=== PATIENT | female | born 1950 | race Caucasian/White ===

== ENCOUNTER → 2017-03-06 | Outpatient (CLI) | payer OTHER | END | disposition home or self-care (01) | LOC: CFH 07:07 | PROVIDERS: ATTEND Family Medicine | DX: Z13.1 Encounter for screening for diabetes mellitus (principal); E78.00 Pure hypercholesterolemia, unspecified | CPT/HCPCS: 36415; 80061; 82947; 83036 ==

== ENCOUNTER → 2017-03-20 | Outpatient (CLI) | payer OTHER | END | disposition home or self-care (01) | LOC: CFH 11:49 | PROVIDERS: ATTEND Family Medicine | DX: M17.11 Unilateral primary osteoarthritis, right knee (principal) | CPT/HCPCS: 73565 ==

== ENCOUNTER → 2017-11-12 | Outpatient (CLI) | payer OTHER | END | disposition home or self-care (01) | LOC: CFH 15:56 | PROVIDERS: ATTEND Nurse Practitioner Family | DX: Z12.31 Encounter for screening mammogram for malignant neoplasm of breast (principal) | CPT/HCPCS: G0202 ==

== ENCOUNTER → 2018-11-13 | Outpatient (CLI) | payer OTHER | END | disposition home or self-care (01) | LOC: CFH 15:27 | PROVIDERS: ATTEND Nurse Practitioner Family | DX: Z12.31 Encounter for screening mammogram for malignant neoplasm of breast (principal) | CPT/HCPCS: 77067 ==

== ENCOUNTER → 2018-12-17 | Outpatient (CLI) | payer OTHER ==
[2018-12-17 07:31] LABS: ALANINE AMINOTRANSFERASE 31 U/L (12-78); ANION GAP 7 mmol/L (5-15); BASOPHILS # (AUTO) 0.04 x10^3/uL (0-0.1); BASOPHILS % (AUTO) 1 % (0-1); CALCIUM 9.6 mg/dL (8.5-10.1); CHLORIDE 109 mmol/L (98-107); CREATININE 0.85 mg/dL (0.55-1.02); EOSINOPHILS # (AUTO) 0.09 x10^3/uL (0-0.4); EOSINOPHILS % (AUTO) 2 % (1-7); LYMPHOCYTES # (AUTO) 1.01 x10^3/uL (1-3.4); LYMPHOCYTES % (AUTO) 28 % (22-44); MD NO; MEAN CORPUSCULAR HEMOGLOBIN 31.1 pg (27.0-34.8); MEAN CORPUSCULAR HGB CONC 33.8 g/dL (32.4-35.8); MEAN CORPUSCULAR VOLUME 92.2 fL (80-100); MEAN PLATELET VOLUME 8.4 fL (7.4-10.4); MONOCYTES # (AUTO) 0.28 x10^3/uL (0.2-0.8); MONOCYTES % (AUTO) 8 % (2-9); NEUTROPHILS # (AUTO) 2.15 x10^3/uL (1.8-6.8); NEUTROPHILS % (AUTO) 60 % (42-75); PLATELET COUNT 289 x10^3/uL (130-400); RED BLOOD COUNT 4.76 x10^6/uL (3.82-5.3)
[2018-12-17 07:41] LABS: ALKALINE PHOSPHATASE 46 U/L (45-117); BILIRUBIN,TOTAL 0.6 mg/dL (0.2-1.0); CHOL/HDL RATIO 3.2; CHOLESTEROL, TOTAL 186 mg/dL (140-239); HDL CHOL % 32 % (28-40); HDL CHOLESTEROL (DIRECT) 59 mg/dL (40-60); LDL CHOLESTEROL,CALCULATED 109 mg/dL (54-169); LDL/HDL RATIO 1.8 (0.5-3.0); TOTAL PROTEIN 7.9 g/dL (6.4-8.2); TRIGLYCERIDES 91 mg/dL (50-200); VLDL CHOLESTEROL 18 mg/dL (0-25)
== END | disposition home or self-care (01) ==
LOC: LAB 07:04
PROVIDERS: ATTEND Nurse Practitioner Family
DX: Z00.00 Encounter for general adult medical examination without abnormal findings (principal); Z13.820 Encounter for screening for osteoporosis; I10 Essential (primary) hypertension; E55.9 Vitamin D deficiency, unspecified; E78.2 Mixed hyperlipidemia; I34.0 Nonrheumatic mitral (valve) insufficiency; M85.80 Other specified disorders of bone density and structure, unspecified site
CPT/HCPCS: 36415; 80053; 80061; 82306; 84443; 85025

== ENCOUNTER → 2018-12-24 | Outpatient (CLI) | payer OTHER | END | disposition home or self-care (01) | LOC: CFH 10:46 | PROVIDERS: ATTEND Nurse Practitioner Family | DX: Z13.820 Encounter for screening for osteoporosis (principal); M85.88 Other specified disorders of bone density and structure, other site | CPT/HCPCS: 77080 ==

== ENCOUNTER 2019-11-15 09:10 | Outpatient (CLI) | payer OTHER | END 2019-11-15 23:59 | disposition home or self-care (01) | LOC: CFH 09:10 | PROVIDERS: ATTEND Family Medicine | DX: Z12.31 Encounter for screening mammogram for malignant neoplasm of breast (principal) | CPT/HCPCS: 77067 ==

== ENCOUNTER → 2019-12-16 | Outpatient (CLI) | payer OTHER | END | disposition home or self-care (01) | LOC: CFH 10:35 → EDSTATUS 10:45 | PROVIDERS: ATTEND Family Medicine | DX: C25.0 Malignant neoplasm of head of pancreas (principal); K86.2 Cyst of pancreas; K74.69 Other cirrhosis of liver | CPT/HCPCS: 76705 ==

== ENCOUNTER 2019-12-17 08:45 | Outpatient (CLI) | payer OTHER ==
[2019-12-17 11:04] LABS: CREATININE 0.82 mg/dL (0.55-1.02)
[2019-12-17] MEDS ORDERED: OMNIPAQUE 350 MG/ML, 100ML BOTTLE ONE (12:04)
== END 2019-12-17 23:59 | disposition home or self-care (01) ==
LOC: RAD 08:45
PROVIDERS: ATTEND Family Medicine
DX: Z01.818 Encounter for other preprocedural examination (principal); K86.2 Cyst of pancreas; M51.36 Other intervertebral disc degeneration, lumbar region
CPT/HCPCS: 36415; 74178; 82565; 84520; Q9967

== ENCOUNTER → 2019-12-30 | Outpatient (CLI) | payer OTHER ==
[2019-12-30 08:43] LABS: BASOPHILS # (AUTO) 0.04 x10^3/uL (0-0.1); BASOPHILS % (AUTO) 1 % (0-1); EOSINOPHILS # (AUTO) 0.06 x10^3/uL (0-0.4); EOSINOPHILS % (AUTO) 2 % (1-7); LYMPHOCYTES # (AUTO) 0.86 x10^3/uL (1-3.4); LYMPHOCYTES % (AUTO) 22 % (22-44); MD NO; MEAN CORPUSCULAR HEMOGLOBIN 32.2 pg (27.0-34.8); MEAN CORPUSCULAR HGB CONC 34.5 g/dL (32.4-35.8); MEAN CORPUSCULAR VOLUME 93.2 fL (80-100); MEAN PLATELET VOLUME 7.8 fL (7.4-10.4); MONOCYTES # (AUTO) 0.55 x10^3/uL (0.2-0.8); MONOCYTES % (AUTO) 14 % (2-9); NEUTROPHILS # (AUTO) 2.35 x10^3/uL (1.8-6.8); NEUTROPHILS % (AUTO) 61 % (42-75); PLATELET COUNT 269 x10^3/uL (130-400); RED BLOOD COUNT 4.69 x10^6/uL (3.82-5.3)
[2019-12-30 08:54] LABS: ALANINE AMINOTRANSFERASE 44 U/L (12-78); ANION GAP 9 mmol/L (5-15); CALCIUM 9.5 mg/dL (8.5-10.1); CHLORIDE 107 mmol/L (98-107); CHOLESTEROL, TOTAL 178 mg/dL (140-239); CREATININE 0.88 mg/dL (0.55-1.02)
[2019-12-30 08:56] LABS: ALKALINE PHOSPHATASE 63 U/L (45-117); BILIRUBIN,TOTAL 0.4 mg/dL (0.2-1.0); CHOL/HDL RATIO 3.6; HDL CHOL % 28 % (28-40); HDL CHOLESTEROL (DIRECT) 49 mg/dL (40-60); LDL CHOLESTEROL,CALCULATED 106 mg/dL (54-169); LDL/HDL RATIO 2.2 (0.5-3.0); TOTAL PROTEIN 7.5 g/dL (6.4-8.2); TRIGLYCERIDES 113 mg/dL (50-200); VLDL CHOLESTEROL 23 mg/dL (0-25)
== END | disposition home or self-care (01) ==
LOC: LAB 08:30
PROVIDERS: ATTEND Internal Medicine Cardiovascular Disease
DX: I10 Essential (primary) hypertension (principal); E55.9 Vitamin D deficiency, unspecified; E78.2 Mixed hyperlipidemia
CPT/HCPCS: 36415; 80053; 80061; 82306; 85025

== ENCOUNTER → 2020-01-10 | Outpatient (CLI) | payer OTHER ==
[~2020-01-10] MED LIST: LISI-170 PO; LISI1TAB20 PO; METO25TA91 PO; SIMV40TA20 PO
== END | disposition home or self-care (01) ==
LOC: STAR 10:58
PROVIDERS: ATTEND Internal Medicine Geriatric Medicine
DX: Z01.818 Encounter for other preprocedural examination (principal); K86.2 Cyst of pancreas
CPT/HCPCS: 93005

== ENCOUNTER 2020-01-18 10:19 | Day surgery (SDC) | payer OTHER ==
[~2020-01-18] VITALS: Ht 162.6 cm; Wt 69.0 kg
[2020-01-18] MEDS ORDERED: LACTATED RINGERS 1,000 ML IV SCH (10:49)
[2020-01-18] MEDS ORDERED: PROPOFOL 50 ML ONE (11:29)
[2020-01-18] MEDS ORDERED: AMPICILLIN/SULBACTAM 3 GM in SODIUM CHLORIDE 0.9% 100 ML IV ONE (12:00)
[2020-01-18] MEDS ORDERED: FENTANYL PF 100 MCG/2ML IV PRN (12:30)
[2020-01-18] MEDS ORDERED: PROMETHAZINE 25 MG/ML, 1ML IV PRN (12:30)
[2020-01-18] MEDS ORDERED: LABETALOL 5MG/ML, 20ML IV PRN (12:30)
[2020-01-18] MEDS ORDERED: ONDANSETRON ODT 8 MG PO PRN (12:30)
[2020-01-18] MEDS ORDERED: EPHEDRINE 50 MG/ML, 1ML IVPush PRN (12:30)
[2020-01-18] MEDS ORDERED: HALOPERIDOL 5 MG/ML IV PRN (12:30)
[2020-01-18] MEDS ORDERED: ONDANSETRON 2MG/ML, 2ML IV PRN (12:30)
[2020-01-18] MEDS ORDERED: MEPERIDINE/PF 25MG/ML,1ML IVPush PRN (12:30)
[2020-01-18] MEDS ORDERED: HYDROmorphone 2 MG/ML, 1ML IVPush PRN (12:30)
[2020-01-18] MEDS ORDERED: ALBUTEROL SULFATE 2.5 MG/3 ML NPPB PRN (12:30)
[2020-01-18] MEDS ORDERED: ACETAMINOPHEN 325 MG TABLET PO PRN (12:30)
[2020-01-18] MEDS ORDERED: PROMETHAZINE 12.5 MG SUPP PR PRN (12:30)
[2020-01-18] MEDS ORDERED: DIAZEPAM 5 MG/ML, 2ML IVPush PRN (12:30)
[2020-01-18] MEDS ORDERED: OXYcodone 5 MG/5 ML ORAL.SOL UDC PO PRN (12:30)
[2020-01-18] MEDS ORDERED: hydrALAzine 20 MG/ML, 1ML IV PRN (12:30)
[2020-01-18] MEDS ORDERED: MIDAZOLAM 1 MG/ML, 2ML IV PRN (12:30)
== END 2020-01-18 13:25 | disposition home or self-care (01) ==
LOC: OUT 10:19
PROVIDERS: ATTEND Internal Medicine Geriatric Medicine
DX: K86.2 Cyst of pancreas (principal); K29.50 Unspecified chronic gastritis without bleeding; B96.81 Helicobacter pylori [H. pylori] as the cause of diseases classified elsewhere; C25.0 Malignant neoplasm of head of pancreas; K76.6 Portal hypertension; I10 Essential (primary) hypertension; E78.5 Hyperlipidemia, unspecified; Z98.890 Other specified postprocedural states; Z90.721 Acquired absence of ovaries, unilateral; Z87.891 Personal history of nicotine dependence; Z79.899 Other long term (current) drug therapy
CPT/HCPCS: 43238; 43239; 88172; 88173; 88177; 88305; 88307; J2704; J7120

== ENCOUNTER 2020-02-01 11:26 | Day surgery (SDC) | payer OTHER ==
[~2020-02-01] VITALS: Ht 162.6 cm; Wt 69.0 kg
[2020-02-01 12:07] VITALS: BP 180/82
[2020-02-01] MEDS ORDERED: LACTATED RINGERS 1,000 ML IV SCH (12:09)
[2020-02-01] MEDS ORDERED: PROPOFOL 10 MG/ML, 20ML ONE (13:04)
== END 2020-02-01 15:45 | disposition home or self-care (01) ==
LOC: OUT 11:26
PROVIDERS: ATTEND Internal Medicine Geriatric Medicine
DX: D12.2 Benign neoplasm of ascending colon (principal); I10 Essential (primary) hypertension; E78.5 Hyperlipidemia, unspecified; I34.1 Nonrheumatic mitral (valve) prolapse; Z79.82 Long term (current) use of aspirin
CPT/HCPCS: 45381; 45385; 88305; A4648; J2704; J7120

== ENCOUNTER → 2020-03-16 | Outpatient (CLI) | payer OTHER | END | disposition home or self-care (01) | LOC: ROC 07:25 | PROVIDERS: ATTEND Radiology Radiation Oncology | DX: C24.0 Malignant neoplasm of extrahepatic bile duct (principal); M17.0 Bilateral primary osteoarthritis of knee; I38 Endocarditis, valve unspecified; E78.00 Pure hypercholesterolemia, unspecified | CPT/HCPCS: 99214; G0463 ==

== ENCOUNTER → 2020-03-27 | Outpatient (CLI) | payer OTHER ==
[2020-03-27 08:57] LABS: BASOPHILS # (AUTO) 0.04 x10^3/uL (0-0.1); BASOPHILS % (AUTO) 1 % (0-1); EOSINOPHILS # (AUTO) 0.23 x10^3/uL (0-0.4); EOSINOPHILS % (AUTO) 6 % (1-7); LYMPHOCYTES # (AUTO) 0.81 x10^3/uL (1-3.4); LYMPHOCYTES % (AUTO) 20 % (22-44); MD NO; MEAN CORPUSCULAR HEMOGLOBIN 31.3 pg (27.0-34.8); MEAN CORPUSCULAR HGB CONC 33.4 g/dL (32.4-35.8); MEAN CORPUSCULAR VOLUME 93.8 fL (80-100); MEAN PLATELET VOLUME 7.8 fL (7.4-10.4); MONOCYTES # (AUTO) 0.31 x10^3/uL (0.2-0.8); MONOCYTES % (AUTO) 7 % (2-9); NEUTROPHILS # (AUTO) 2.71 x10^3/uL (1.8-6.8); NEUTROPHILS % (AUTO) 66 % (42-75); PLATELET COUNT 275 x10^3/uL (130-400); RED BLOOD COUNT 4.01 x10^6/uL (3.82-5.3); RED CELL DISTRIBUTION WIDTH 13.4 % (9.6-15.2)
[2020-03-27 09:10] LABS: ALBUMIN 3.3 g/dL (3.4-5.0); ANION GAP 4 mmol/L (5-15); CALCIUM 8.7 mg/dL (8.5-10.1); CHLORIDE 110 mmol/L (98-107)
[2020-03-27 09:16] LABS: ALANINE AMINOTRANSFERASE 57 U/L (12-78); ALKALINE PHOSPHATASE 65 U/L (45-117); BILIRUBIN,TOTAL 0.6 mg/dL (0.2-1.0); CREATININE 0.65 mg/dL (0.55-1.02); TOTAL PROTEIN 6.7 g/dL (6.4-8.2)
== END | disposition home or self-care (01) ==
LOC: LAB 08:33
PROVIDERS: ATTEND Internal Medicine Hematology & Oncology
DX: C24.8 Malignant neoplasm of overlapping sites of biliary tract (principal)
CPT/HCPCS: 36415; 80053; 85025

== ENCOUNTER → 2020-04-12 | Outpatient (CLI) | payer OTHER ==
[2020-04-12 11:31] LABS: BASOPHILS # (AUTO) 0.03 x10^3/uL (0-0.1); BASOPHILS % (AUTO) 1 % (0-1); EOSINOPHILS # (AUTO) 0.31 x10^3/uL (0-0.4); EOSINOPHILS % (AUTO) 9 % (1-7); LYMPHOCYTES # (AUTO) 0.39 x10^3/uL (1-3.4); LYMPHOCYTES % (AUTO) 11 % (22-44); MD NO; MEAN CORPUSCULAR HEMOGLOBIN 31.6 pg (27.0-34.8); MEAN CORPUSCULAR HGB CONC 33.4 g/dL (32.4-35.8); MEAN CORPUSCULAR VOLUME 94.8 fL (80-100); MEAN PLATELET VOLUME 7.2 fL (7.4-10.4); MONOCYTES # (AUTO) 0.33 x10^3/uL (0.2-0.8); MONOCYTES % (AUTO) 9 % (2-9); NEUTROPHILS % (AUTO) 71 % (42-75); PLATELET COUNT 235 x10^3/uL (130-400); RED BLOOD COUNT 3.92 x10^6/uL (3.82-5.3); RED CELL DISTRIBUTION WIDTH 13.8 % (9.6-15.2)
[2020-04-12 11:42] LABS: ALANINE AMINOTRANSFERASE 27 U/L (12-78); ALBUMIN 3.5 g/dL (3.4-5.0); ANION GAP 5 mmol/L (5-15); CALCIUM 8.6 mg/dL (8.5-10.1); CHLORIDE 106 mmol/L (98-107); CREATININE 0.69 mg/dL (0.55-1.02)
[2020-04-12 11:45] LABS: ALKALINE PHOSPHATASE 47 U/L (45-117); BILIRUBIN,TOTAL 0.3 mg/dL (0.2-1.0); TOTAL PROTEIN 6.8 g/dL (6.4-8.2)
== END | disposition home or self-care (01) ==
LOC: LAB 11:20
PROVIDERS: ATTEND Nurse Practitioner
DX: C24.8 Malignant neoplasm of overlapping sites of biliary tract (principal)
CPT/HCPCS: 36415; 80053; 85025

== ENCOUNTER → 2020-04-26 | Outpatient (CLI) | payer OTHER ==
[2020-04-26 12:10] LABS: MEAN CORPUSCULAR HGB CONC 33.8 g/dL (32.4-35.8); MEAN CORPUSCULAR VOLUME 94.9 fL (80-100); MEAN PLATELET VOLUME 7.4 fL (7.4-10.4); PLATELET COUNT 222 x10^3/uL (130-400); RED BLOOD COUNT 3.67 x10^6/uL (3.82-5.3)
[2020-04-26 12:20] LABS: ALANINE AMINOTRANSFERASE 26 U/L (12-78); ALBUMIN 3.1 g/dL (3.4-5.0); ANION GAP 5 mmol/L (5-15); CALCIUM 8.5 mg/dL (8.5-10.1); CHLORIDE 104 mmol/L (98-107); CREATININE 0.62 mg/dL (0.55-1.02)
[2020-04-26 12:23] LABS: ALKALINE PHOSPHATASE 57 U/L (45-117); BILIRUBIN,TOTAL 0.4 mg/dL (0.2-1.0); TOTAL PROTEIN 6.8 g/dL (6.4-8.2)
[2020-04-26 12:34] LABS: BASOPHILS # (AUTO) 0.01 x10^3/uL (0-0.1); BASOPHILS % (AUTO) 0 % (0-1); EOSINOPHILS # (AUTO) 0.36 x10^3/uL (0-0.4); EOSINOPHILS % (AUTO) 12 % (1-7); LYMPHOCYTES # (AUTO) 0.18 x10^3/uL (1-3.4); LYMPHOCYTES % (AUTO) 6 % (22-44); MD SCAN; MONOCYTES # (AUTO) 0.41 x10^3/uL (0.2-0.8); MONOCYTES % (AUTO) 14 % (2-9); NEUTROPHILS # (AUTO) 1.97 x10^3/uL (1.8-6.8); NEUTROPHILS % (AUTO) 67 % (42-75)
== END | disposition home or self-care (01) ==
LOC: LAB 11:58
PROVIDERS: ATTEND Nurse Practitioner
DX: C24.8 Malignant neoplasm of overlapping sites of biliary tract (principal); R11.0 Nausea
CPT/HCPCS: 36415; 80053; 85025

== ENCOUNTER 2020-06-06 07:14 | Outpatient (CLI) | payer OTHER | END 2020-06-06 23:59 | disposition home or self-care (01) | LOC: ROC 07:14 | PROVIDERS: ATTEND Radiology Radiation Oncology | DX: Z08 Encounter for follow-up examination after completed treatment for malignant neoplasm (principal); Z85.89 Personal history of malignant neoplasm of other organs and systems; Z92.3 Personal history of irradiation | CPT/HCPCS: 99212; G0463 ==

== ENCOUNTER → 2020-06-15 | Outpatient (CLI) | payer OTHER ==
[~2020-06-15] MED LIST changes: +OMNIPAQUE 350 MG/ML, 100ML BOTTLE ONE
== END | disposition home or self-care (01) ==
LOC: CFH 10:32
PROVIDERS: ATTEND Surgery
DX: C22.1 Intrahepatic bile duct carcinoma (principal)
CPT/HCPCS: 74170; Q9967

== ENCOUNTER → 2020-06-26 | Outpatient (CLI) | payer OTHER ==
[~2020-06-26] MED LIST changes: -OMNIPAQUE 350 MG/ML, 100ML BOTTLE ONE
[2020-06-26 08:13] LABS: BASOPHILS # (AUTO) 0.03 x10^3/uL (0-0.1); BASOPHILS % (AUTO) 1 % (0-1); EOSINOPHILS % (AUTO) 3 % (1-7); LYMPHOCYTES # (AUTO) 0.31 x10^3/uL (1-3.4); LYMPHOCYTES % (AUTO) 8 % (22-44); MD NO; MEAN CORPUSCULAR HEMOGLOBIN 31.6 pg (27.0-34.8); MEAN CORPUSCULAR HGB CONC 33.2 g/dL (32.4-35.8); MEAN CORPUSCULAR VOLUME 95.2 fL (80-100); MEAN PLATELET VOLUME 6.9 fL (7.4-10.4); MONOCYTES # (AUTO) 0.32 x10^3/uL (0.2-0.8); MONOCYTES % (AUTO) 8 % (2-9); NEUTROPHILS # (AUTO) 3.37 x10^3/uL (1.8-6.8); NEUTROPHILS % (AUTO) 82 % (42-75); PLATELET COUNT 283 x10^3/uL (130-400); RED BLOOD COUNT 3.85 x10^6/uL (3.82-5.3); RED CELL DISTRIBUTION WIDTH 14.5 % (9.6-15.2)
[2020-06-26 08:26] LABS: ALANINE AMINOTRANSFERASE 59 U/L (12-78); ALBUMIN 3.4 g/dL (3.4-5.0); ANION GAP 9 mmol/L (5-15); CALCIUM 8.5 mg/dL (8.5-10.1); CHLORIDE 108 mmol/L (98-107)
[2020-06-26 08:29] LABS: ALKALINE PHOSPHATASE 104 U/L (45-117); BILIRUBIN,TOTAL 0.5 mg/dL (0.2-1.0); TOTAL PROTEIN 6.9 g/dL (6.4-8.2)
== END | disposition home or self-care (01) ==
LOC: LAB 08:01
PROVIDERS: ATTEND Internal Medicine Hematology & Oncology
DX: C24.8 Malignant neoplasm of overlapping sites of biliary tract (principal); R11.0 Nausea
CPT/HCPCS: 36415; 80053; 85025

== ENCOUNTER → 2020-08-17 | Outpatient (CLI) | payer OTHER ==
[2020-08-17 08:28] LABS: ALANINE AMINOTRANSFERASE 53 U/L (12-78); ALBUMIN 3.6 g/dL (3.4-5.0); ANION GAP 7 mmol/L (5-15); CALCIUM 8.7 mg/dL (8.5-10.1); CHLORIDE 110 mmol/L (98-107); CREATININE 0.67 mg/dL (0.55-1.02)
[2020-08-17 08:30] LABS: ALKALINE PHOSPHATASE 89 U/L (45-117); BILIRUBIN,TOTAL 0.4 mg/dL (0.2-1.0); TOTAL PROTEIN 6.8 g/dL (6.4-8.2)
[2020-08-17 08:49] LABS: MEAN CORPUSCULAR HEMOGLOBIN 32.3 pg (27.0-34.8); MEAN CORPUSCULAR HGB CONC 33.2 g/dL (32.4-35.8); MEAN PLATELET VOLUME 6.1 fL (7.4-10.4); PLATELET COUNT 279 x10^3/uL (130-400); RED BLOOD COUNT 3.62 x10^6/uL (3.82-5.3)
[2020-08-17 08:50] LABS: BASOPHILS # (AUTO) 0.01 x10^3/uL (0-0.1); BASOPHILS % (AUTO) 0 % (0-1); EOSINOPHILS % (AUTO) 3 % (1-7); LYMPHOCYTES # (AUTO) 0.36 x10^3/uL (1-3.4); LYMPHOCYTES % (AUTO) 12 % (22-44); MD MORPH REVIEW ONLY; MONOCYTES # (AUTO) 0.29 x10^3/uL (0.2-0.8); MONOCYTES % (AUTO) 9 % (2-9); NEUTROPHILS # (AUTO) 2.34 x10^3/uL (1.8-6.8); NEUTROPHILS % (AUTO) 76 % (42-75)
[2020-08-17 08:51] LABS: ANISOCYTOSIS 1+; OVALOCYTES 1+; RED CELL DISTRIBUTION WIDTH 15.9 % (9.6-15.2)
[2020-08-17 08:52] LABS: <PLATELET ESTIMATE> ADEQUATE; <PLT MORPHOLOGY> NORMAL PLT MORPH
== END | disposition home or self-care (01) ==
LOC: LAB 08:04
PROVIDERS: ATTEND Internal Medicine Hematology & Oncology
DX: C24.8 Malignant neoplasm of overlapping sites of biliary tract (principal); R11.0 Nausea; L27.1 Localized skin eruption due to drugs and medicaments taken internally
CPT/HCPCS: 36415; 80053; 85025

== ENCOUNTER → 2020-09-05 | Outpatient (CLI) | payer OTHER ==
[2020-09-05 09:10] LABS: BASOPHILS % (AUTO) 1 % (0-1); EOSINOPHILS % (AUTO) 2 % (1-7); LYMPHOCYTES % (AUTO) 8 % (22-44); MEAN CORPUSCULAR HGB CONC 34.2 g/dL (32.4-35.8); MEAN PLATELET VOLUME 6.7 fL (7.4-10.4); MONOCYTES % (AUTO) 9 % (2-9); NEUTROPHILS % (AUTO) 81 % (42-75); PLATELET COUNT 241 x10^3/uL (130-400); RED BLOOD COUNT 3.42 x10^6/uL (3.82-5.3); RED CELL DISTRIBUTION WIDTH 17.4 % (9.6-15.2)
[2020-09-05 09:14] LABS: MD NO
[2020-09-05 09:17] LABS: ALANINE AMINOTRANSFERASE 27 U/L (12-78); ALBUMIN 3.5 g/dL (3.4-5.0); ANION GAP 6 mmol/L (5-15); CALCIUM 8.8 mg/dL (8.5-10.1); CHLORIDE 109 mmol/L (98-107); CREATININE 0.78 mg/dL (0.55-1.02)
[2020-09-05 09:19] LABS: ALKALINE PHOSPHATASE 81 U/L (45-117); BILIRUBIN,TOTAL 0.6 mg/dL (0.2-1.0); TOTAL PROTEIN 6.4 g/dL (6.4-8.2)
== END | disposition home or self-care (01) ==
LOC: LAB 08:34
PROVIDERS: ATTEND Internal Medicine Hematology & Oncology
DX: C24.8 Malignant neoplasm of overlapping sites of biliary tract (principal); L27.1 Localized skin eruption due to drugs and medicaments taken internally; R11.0 Nausea
CPT/HCPCS: 36415; 80053; 85025

== ENCOUNTER → 2020-09-13 | Outpatient (CLI) | payer OTHER ==
[~2020-09-13] MED LIST changes: +OMNIPAQUE 350 MG/ML, 100ML BOTTLE ONE
== END | disposition home or self-care (01) ==
LOC: CFH 10:59
PROVIDERS: ATTEND Surgery
DX: C22.1 Intrahepatic bile duct carcinoma (principal); J84.10 Pulmonary fibrosis, unspecified; K76.89 Other specified diseases of liver
CPT/HCPCS: 74170; Q9967

== ENCOUNTER → 2020-09-26 | Outpatient (CLI) | payer OTHER ==
[~2020-09-26] MED LIST changes: -OMNIPAQUE 350 MG/ML, 100ML BOTTLE ONE
[2020-09-26 09:49] LABS: BASOPHILS % (AUTO) 1 % (0-1); EOSINOPHILS % (AUTO) 2 % (1-7); LYMPHOCYTES % (AUTO) 11 % (22-44); MEAN CORPUSCULAR HEMOGLOBIN 34.3 pg (27.0-34.8); MEAN CORPUSCULAR HGB CONC 34.3 g/dL (32.4-35.8); MEAN PLATELET VOLUME 6.4 fL (7.4-10.4); MONOCYTES % (AUTO) 10 % (2-9); NEUTROPHILS % (AUTO) 77 % (42-75); PLATELET COUNT 238 x10^3/uL (130-400); RED BLOOD COUNT 3.03 x10^6/uL (3.82-5.3); RED CELL DISTRIBUTION WIDTH 20.7 % (9.6-15.2)
[2020-09-26 09:54] LABS: ALANINE AMINOTRANSFERASE 36 U/L (12-78); ALBUMIN 3.4 g/dL (3.4-5.0); ANION GAP 7 mmol/L (5-15); CALCIUM 8.5 mg/dL (8.5-10.1); CHLORIDE 108 mmol/L (98-107); CREATININE 0.77 mg/dL (0.55-1.02)
[2020-09-26 09:57] LABS: ALKALINE PHOSPHATASE 72 U/L (45-117); BILIRUBIN,TOTAL 0.4 mg/dL (0.2-1.0); TOTAL PROTEIN 6.3 g/dL (6.4-8.2)
[2020-09-26 10:52] LABS: MD MORPH REVIEW ONLY
[2020-09-26 10:53] LABS: ANISOCYTOSIS 1+; MICROCYTOSIS 1+; OVALOCYTES 1+
[2020-09-26 10:54] LABS: <PLATELET ESTIMATE> ADEQUATE; <PLT MORPHOLOGY> NORMAL PLT MORPH
== END | disposition home or self-care (01) ==
LOC: LAB 09:30
PROVIDERS: ATTEND Internal Medicine Hematology & Oncology
DX: C24.8 Malignant neoplasm of overlapping sites of biliary tract (principal); R11.0 Nausea; L27.1 Localized skin eruption due to drugs and medicaments taken internally
CPT/HCPCS: 36415; 80053; 85025

== ENCOUNTER → 2020-10-03 | Outpatient (CLI) | payer OTHER ==
[2020-10-03 09:05] LABS: ANION GAP 5 mmol/L (5-15); CALCIUM 8.7 mg/dL (8.5-10.1); CHLORIDE 112 mmol/L (98-107); CREATININE 0.83 mg/dL (0.55-1.02)
== END | disposition home or self-care (01) ==
LOC: LAB 08:40
PROVIDERS: ATTEND Internal Medicine Hematology & Oncology
DX: C24.8 Malignant neoplasm of overlapping sites of biliary tract (principal); L27.1 Localized skin eruption due to drugs and medicaments taken internally; R11.0 Nausea
CPT/HCPCS: 36415; 80048; 83735

== ENCOUNTER → 2020-10-24 | Outpatient (CLI) | payer OTHER ==
[2020-10-24 08:33] LABS: BASOPHILS % (AUTO) 1 % (0-1); EOSINOPHILS % (AUTO) 2 % (1-7); LYMPHOCYTES % (AUTO) 12 % (22-44); MEAN CORPUSCULAR HEMOGLOBIN 36.5 pg (27.0-34.8); MEAN CORPUSCULAR HGB CONC 34.4 g/dL (32.4-35.8); MEAN PLATELET VOLUME 6.4 fL (7.4-10.4); MONOCYTES % (AUTO) 12 % (2-9); NEUTROPHILS % (AUTO) 75 % (42-75); PLATELET COUNT 257 x10^3/uL (130-400); RED BLOOD COUNT 3.06 x10^6/uL (3.82-5.3); RED CELL DISTRIBUTION WIDTH 18.9 % (9.6-15.2)
[2020-10-24 08:45] LABS: ALANINE AMINOTRANSFERASE 33 U/L (12-78); ALBUMIN 3.6 g/dL (3.4-5.0); ANION GAP 7 mmol/L (5-15); CALCIUM 8.5 mg/dL (8.5-10.1); CHLORIDE 110 mmol/L (98-107)
[2020-10-24 08:48] LABS: ALKALINE PHOSPHATASE 76 U/L (45-117); BILIRUBIN,TOTAL 0.6 mg/dL (0.2-1.0); CREATININE 0.88 mg/dL (0.55-1.02); TOTAL PROTEIN 6.8 g/dL (6.4-8.2)
[2020-10-24 09:34] LABS: MD MORPH REVIEW ONLY
[2020-10-24 09:35] LABS: <PLATELET ESTIMATE> ADEQUATE; <PLT MORPHOLOGY> NORMAL PLT MORPH; ANISOCYTOSIS 1+; OVALOCYTES 1+
== END | disposition home or self-care (01) ==
LOC: LAB 08:20
PROVIDERS: ATTEND Internal Medicine Hematology & Oncology
DX: C24.8 Malignant neoplasm of overlapping sites of biliary tract (principal); R11.0 Nausea; L27.1 Localized skin eruption due to drugs and medicaments taken internally
CPT/HCPCS: 36415; 80053; 85025

== ENCOUNTER → 2020-11-20 | Outpatient (CLI) | payer OTHER ==
[2020-11-20 08:47] LABS: BASOPHILS % (AUTO) 1 % (0-1); EOSINOPHILS % (AUTO) 2 % (1-7); LYMPHOCYTES % (AUTO) 11 % (22-44); MEAN CORPUSCULAR HEMOGLOBIN 36.7 pg (27.0-34.8); MEAN CORPUSCULAR HGB CONC 35.3 g/dL (32.4-35.8); MEAN PLATELET VOLUME 7.1 fL (7.4-10.4); MONOCYTES % (AUTO) 13 % (2-9); NEUTROPHILS % (AUTO) 74 % (42-75); PLATELET COUNT 248 x10^3/uL (130-400); RED CELL DISTRIBUTION WIDTH 17.3 % (9.6-15.2)
[2020-11-20 08:55] LABS: ALANINE AMINOTRANSFERASE 33 U/L (12-78); ALBUMIN 3.1 g/dL (3.4-5.0); ANION GAP 8 mmol/L (5-15); CALCIUM 8.5 mg/dL (8.5-10.1); CHLORIDE 108 mmol/L (98-107); CREATININE 0.75 mg/dL (0.55-1.02)
[2020-11-20 08:58] LABS: ALKALINE PHOSPHATASE 74 U/L (45-117); BILIRUBIN,TOTAL 0.7 mg/dL (0.2-1.0); TOTAL PROTEIN 5.9 g/dL (6.4-8.2)
[2020-11-20 09:01] LABS: MD NO
== END | disposition home or self-care (01) ==
LOC: LAB 08:18
PROVIDERS: ATTEND Family Medicine
DX: C24.8 Malignant neoplasm of overlapping sites of biliary tract (principal); R11.0 Nausea; L27.1 Localized skin eruption due to drugs and medicaments taken internally
CPT/HCPCS: 36415; 80053; 85025

== ENCOUNTER → 2020-11-22 | Outpatient (CLI) | payer OTHER | END | disposition home or self-care (01) | LOC: CFH 11:11 | PROVIDERS: ATTEND Family Medicine | DX: Z12.31 Encounter for screening mammogram for malignant neoplasm of breast (principal) | CPT/HCPCS: 77067 ==

== ENCOUNTER → 2020-12-06 | Outpatient (CLI) | payer OTHER ==
[2020-12-06 08:24] LABS: ANION GAP 6 mmol/L (5-15); CALCIUM 9.1 mg/dL (8.5-10.1); CHLORIDE 110 mmol/L (98-107)
[2020-12-06 08:26] LABS: CREATININE 0.75 mg/dL (0.55-1.02)
== END | disposition home or self-care (01) ==
LOC: LAB 07:57
PROVIDERS: ATTEND Internal Medicine Cardiovascular Disease
DX: I10 Essential (primary) hypertension (principal); E78.2 Mixed hyperlipidemia; Z87.19 Personal history of other diseases of the digestive system
CPT/HCPCS: 36415; 80048

== ENCOUNTER → 2020-12-15 | Outpatient (CLI) | payer OTHER ==
[~2020-12-15] MED LIST changes: +OMNIPAQUE 350 MG/ML, 100ML BOTTLE ONE
== END | disposition home or self-care (01) ==
LOC: CFH 11:48
PROVIDERS: ATTEND Surgery
DX: C22.1 Intrahepatic bile duct carcinoma (principal); J84.10 Pulmonary fibrosis, unspecified; K76.89 Other specified diseases of liver; M85.88 Other specified disorders of bone density and structure, other site; M51.36 Other intervertebral disc degeneration, lumbar region
CPT/HCPCS: 74170; Q9967

== ENCOUNTER → 2020-12-27 | Outpatient (CLI) | payer OTHER ==
[~2020-12-27] MED LIST changes: -OMNIPAQUE 350 MG/ML, 100ML BOTTLE ONE
[2020-12-27 10:22] LABS: BASOPHILS % (AUTO) 1 % (0-1); EOSINOPHILS % (AUTO) 3 % (1-7); LYMPHOCYTES % (AUTO) 7 % (22-44); MEAN CORPUSCULAR HGB CONC 34.8 g/dL (32.4-35.8); MEAN PLATELET VOLUME 7.3 fL (7.4-10.4); MONOCYTES % (AUTO) 9 % (2-9); NEUTROPHILS % (AUTO) 80 % (42-75); PLATELET COUNT 268 x10^3/uL (130-400); RED BLOOD COUNT 3.59 x10^6/uL (3.82-5.3); RED CELL DISTRIBUTION WIDTH 12.8 % (9.6-15.2)
[2020-12-27 10:28] LABS: ALANINE AMINOTRANSFERASE 35 U/L (12-78); ALBUMIN 3.6 g/dL (3.4-5.0); ANION GAP 6 mmol/L (5-15); CALCIUM 8.8 mg/dL (8.5-10.1); CHLORIDE 105 mmol/L (98-107); CREATININE 0.64 mg/dL (0.55-1.02); MD NO
[2020-12-27 10:30] LABS: ALKALINE PHOSPHATASE 70 U/L (45-117); BILIRUBIN,TOTAL 0.4 mg/dL (0.2-1.0); TOTAL PROTEIN 6.6 g/dL (6.4-8.2)
== END | disposition home or self-care (01) ==
LOC: LAB 10:02
PROVIDERS: ATTEND Internal Medicine Hematology & Oncology
DX: C24.8 Malignant neoplasm of overlapping sites of biliary tract (principal); R11.0 Nausea; L27.1 Localized skin eruption due to drugs and medicaments taken internally
CPT/HCPCS: 36415; 80053; 85025

== ENCOUNTER 2021-03-06 08:55 | Outpatient (CLI) | payer OTHER ==
[2021-03-06 09:18] LABS: BASOPHILS % (AUTO) 1 % (0-1); EOSINOPHILS % (AUTO) 1 % (1-7); LYMPHOCYTES % (AUTO) 7 % (22-44); MD NO; MEAN CORPUSCULAR HEMOGLOBIN 31.6 pg (27.0-34.8); MEAN CORPUSCULAR HGB CONC 34.7 g/dL (32.4-35.8); MEAN PLATELET VOLUME 6.9 fL (7.4-10.4); MONOCYTES % (AUTO) 9 % (2-9); NEUTROPHILS % (AUTO) 82 % (42-75); PLATELET COUNT 313 x10^3/uL (130-400); RED BLOOD COUNT 4.13 x10^6/uL (3.82-5.3); RED CELL DISTRIBUTION WIDTH 12.6 % (9.6-15.2)
[2021-03-06 09:30] LABS: ALANINE AMINOTRANSFERASE 31 U/L (12-78); ALBUMIN 3.6 g/dL (3.4-5.0); ANION GAP 6 mmol/L (5-15); CALCIUM 8.6 mg/dL (8.5-10.1); CHLORIDE 102 mmol/L (98-107); CREATININE 0.55 mg/dL (0.55-1.02)
[2021-03-06 09:32] LABS: ALKALINE PHOSPHATASE 67 U/L (45-117); BILIRUBIN,TOTAL 0.4 mg/dL (0.2-1.0); TOTAL PROTEIN 6.9 g/dL (6.4-8.2)
== END 2021-03-06 23:59 | disposition home or self-care (01) ==
LOC: LAB 08:55
PROVIDERS: ATTEND Internal Medicine Hematology & Oncology
DX: C24.8 Malignant neoplasm of overlapping sites of biliary tract (principal); R11.0 Nausea; L27.1 Localized skin eruption due to drugs and medicaments taken internally
CPT/HCPCS: 36415; 80053; 85025

== ENCOUNTER → 2021-03-14 | Outpatient (CLI) | payer OTHER ==
[~2021-03-14] MED LIST changes: +OMNIPAQUE 350 MG/ML, 100ML BOTTLE ONE
== END | disposition home or self-care (01) ==
LOC: CFH 12:47
PROVIDERS: ATTEND Surgery
DX: C22.1 Intrahepatic bile duct carcinoma (principal); N28.1 Cyst of kidney, acquired; K76.89 Other specified diseases of liver
CPT/HCPCS: 74170; Q9967

== ENCOUNTER 2021-03-27 05:47 | Day surgery (SDC) | payer OTHER ==
[~2021-03-27] VITALS: Ht 162.6 cm; Wt 49.9 kg
[~2021-03-27 05:47] MED LIST changes: -OMNIPAQUE 350 MG/ML, 100ML BOTTLE ONE; +OXYC1TAB14 PO
[2021-03-27 06:49] VITALS: BP 151/90
[2021-03-27] MEDS ORDERED: SODIUM CHLORIDE 0.9% 1,000 ML IV SCH (07:00)
[2021-03-27] MEDS ORDERED: FLUMAZENIL 0.1 MG/1 ML, 5ML ONE (08:15)
[2021-03-27] MEDS ORDERED: FENTANYL PF 100 MCG/2ML ONE (08:15)
[2021-03-27] MEDS ORDERED: NALOXONE 1 MG/ML, 2ML ONE (08:15)
[2021-03-27] MEDS ORDERED: MIDAZOLAM 1 MG/ML, 5ML ONE (08:15)
== END 2021-03-27 09:35 | disposition home or self-care (01) ==
LOC: OUT 05:47
PROVIDERS: ATTEND Radiology Radiation Oncology
DX: R19.09 Other intra-abdominal and pelvic swelling, mass and lump (principal); C44.509 Unspecified malignant neoplasm of skin of other part of trunk; C24.0 Malignant neoplasm of extrahepatic bile duct; I10 Essential (primary) hypertension; Z79.899 Other long term (current) drug therapy; Z87.891 Personal history of nicotine dependence
CPT/HCPCS: 49180; 77012; 88305; 88333; 99156; 99157; J2250; J3010; J7030; J2310

== ENCOUNTER → 2021-04-05 | Outpatient (CLI) | payer OTHER | END | disposition home or self-care (01) | LOC: PETCFH 07:17 | PROVIDERS: ATTEND Radiology Radiation Oncology | DX: C78.89 Secondary malignant neoplasm of other digestive organs (principal); C24.8 Malignant neoplasm of overlapping sites of biliary tract; N94.89 Other specified conditions associated with female genital organs and menstrual cycle; N83.8 Other noninflammatory disorders of ovary, fallopian tube and broad ligament | CPT/HCPCS: 78815; A9552 ==

== ENCOUNTER 2021-04-13 06:57 | Day surgery (SDC) | payer OTHER ==
[~2021-04-13] VITALS: Ht 162.6 cm; Wt 46.5 kg
[2021-04-13] MEDS ORDERED: CHLORHEXIDINE 15 ML UDC ONE (07:24)
[2021-04-13] MEDS ORDERED: CHLORHEXIDINE 15 ML UDC PO ONE (07:30)
[2021-04-13] MEDS ORDERED: LACTATED RINGERS 1,000 ML IV SCH (07:30)
[2021-04-13 07:39] VITALS: BP 134/83
[2021-04-13] MEDS ORDERED: potassium PO (07:50)
[2021-04-13 08:29] LABS: ANION GAP 9 mmol/L (5-15); CALCIUM 8.9 mg/dL (8.5-10.1); CHLORIDE 103 mmol/L (98-107); CREATININE 0.49 mg/dL (0.55-1.02)
[2021-04-13] MEDS ORDERED: BUPIVACAINE/PF 0.25% ONE (08:41)
[2021-04-13] MEDS ORDERED: HEPARIN 5,000 UNITS/ML, 1ML ONE (08:41)
[2021-04-13] MEDS ORDERED: HEPARIN 1,000 UNITS/ML, 10ML ONE (08:42)
[2021-04-13] MEDS ORDERED: EPINEPHRINE 1 MG/ML, 1ML ONE (08:42)
[2021-04-13] MEDS ORDERED: LIDOCAINE 1%, 20ML ONE (08:42)
[2021-04-13] MEDS ORDERED: FENTANYL PF 100 MCG/2ML ONE (08:47)
[2021-04-13] MEDS ORDERED: ONDANSETRON 2MG/ML, 2ML IVPush PRN (09:00)
[2021-04-13] MEDS ORDERED: LABETALOL 5MG/ML, 20ML IV PRN (09:00)
[2021-04-13] MEDS ORDERED: DIAZEPAM 5 MG/ML, 2ML IVPush PRN (09:00)
[2021-04-13] MEDS ORDERED: METOPROLOL 1 MG/ML, 5ML IV PRN (09:00)
[2021-04-13] MEDS ORDERED: HALOPERIDOL 5 MG/ML IV PRN (09:00)
[2021-04-13] MEDS ORDERED: METOCLOPRAMIDE 5 MG/ML, 2ML IVPush PRN (09:00)
[2021-04-13] MEDS ORDERED: HYDROmorphone 1 MG/ML, 1ML INJ IVPush PRN (09:00)
[2021-04-13] MEDS ORDERED: hydrALAzine 20 MG/ML, 1ML IV PRN (09:00)
[2021-04-13] MEDS ORDERED: HYDROcodone/APAP 7.5-325MG/15ML UDC PO PRN (09:00)
[2021-04-13] MEDS ORDERED: EPHEDRINE 50 MG/ML, 1ML IVPush PRN (09:00)
[2021-04-13] MEDS ORDERED: PROMETHAZINE 25 MG/ML, 1ML IVPush PRN (09:00)
[2021-04-13] MEDS ORDERED: DIPHENHYDRAMINE 50 MG/ML, 1ML IVPush PRN (09:00)
[2021-04-13] MEDS ORDERED: ACETAMINOPHEN 325 MG TABLET PO PRN (09:00)
[2021-04-13] MEDS ORDERED: FENTANYL PF 100 MCG/2ML IV PRN (09:00)
[2021-04-13] MEDS ORDERED: CEFAZOLIN 1,000 MG ONE (11:22)
[2021-04-13] MEDS ORDERED: PROPOFOL 10 MG/ML, 20ML ONE (11:22)
== END 2021-04-13 11:00 | disposition home or self-care (01) ==
LOC: OUT 06:57
PROVIDERS: ATTEND Surgery
DX: C22.1 Intrahepatic bile duct carcinoma (principal); K86.2 Cyst of pancreas; I10 Essential (primary) hypertension; M19.90 Unspecified osteoarthritis, unspecified site; Z20.822 Contact with and (suspected) exposure to COVID-19; Z79.891 Long term (current) use of opiate analgesic; Z79.899 Other long term (current) drug therapy; Z87.891 Personal history of nicotine dependence; Z90.49 Acquired absence of other specified parts of digestive tract; Z98.890 Other specified postprocedural states
CPT/HCPCS: 36415; 36561; 77001; 80048; 87635; 93005; C1788; J0171; J0690; J1644; J2704; J3010; J7120

== ENCOUNTER → 2021-05-04 | Outpatient (CLI) | payer OTHER ==
[~2021-05-04] MED LIST changes: +potassium PO
[2021-05-04 09:18] LABS: ALBUMIN 3.3 g/dL (3.4-5.0); ANION GAP 9 mmol/L (5-15); CALCIUM 8.8 mg/dL (8.5-10.1); CHLORIDE 103 mmol/L (98-107)
[2021-05-04 09:23] LABS: ALANINE AMINOTRANSFERASE 19 U/L (12-78); ALKALINE PHOSPHATASE 58 U/L (45-117); BILIRUBIN,TOTAL 0.5 mg/dL (0.2-1.0); CREATININE 0.52 mg/dL (0.55-1.02); TOTAL PROTEIN 6.4 g/dL (6.4-8.2)
== END | disposition home or self-care (01) ==
LOC: LAB 08:38
PROVIDERS: ATTEND Nurse Practitioner Family
DX: C24.8 Malignant neoplasm of overlapping sites of biliary tract (principal); R11.0 Nausea; L27.1 Localized skin eruption due to drugs and medicaments taken internally; Z79.899 Other long term (current) drug therapy
CPT/HCPCS: 36415; 80053; 83735

== ENCOUNTER → 2021-06-14 | Outpatient (CLI) | payer OTHER ==
[~2021-06-14] MED LIST changes: +TRAM-47 PO; +[UNRECOGNIZED DRUG - CODE] PO
== END | disposition home or self-care (01) ==
LOC: ROC 06:59
PROVIDERS: ATTEND Radiology Radiation Oncology
DX: C24.0 Malignant neoplasm of extrahepatic bile duct (principal); I10 Essential (primary) hypertension; M19.90 Unspecified osteoarthritis, unspecified site; Z79.891 Long term (current) use of opiate analgesic; Z79.899 Other long term (current) drug therapy; Z87.891 Personal history of nicotine dependence
CPT/HCPCS: 99212; G0463

== ENCOUNTER 2021-08-08 07:07 | Outpatient (CLI) | payer OTHER ==
[~2021-08-08 07:07] MED LIST changes: +OXYC1TAB12 PO; -OXYC1TAB14 PO
== END 2021-08-08 23:59 | disposition home or self-care (01) ==
LOC: PETCFH 07:07
PROVIDERS: ATTEND Internal Medicine Hematology & Oncology
DX: C24.8 Malignant neoplasm of overlapping sites of biliary tract (principal); R19.05 Periumbilic swelling, mass or lump
CPT/HCPCS: 78815; A9552

== ENCOUNTER → 2021-08-22 | Outpatient (CLI) | payer OTHER | END | disposition home or self-care (01) | LOC: CFH 08:59 | PROVIDERS: ATTEND Radiology Radiation Oncology | DX: C24.0 Malignant neoplasm of extrahepatic bile duct (principal); I82.412 Acute embolism and thrombosis of left femoral vein ==